=== PATIENT | male | born 1960 | race Caucasian/White ===

== ENCOUNTER → 2024-02-21 | Outpatient (CLI) | payer OTHER | END | disposition home or self-care (01) | LOC: CT 02-20 08:00 | PROVIDERS: ATTEND Internal Medicine Hematology & Oncology | DX: N20.2 Calculus of kidney with calculus of ureter (principal); K80.20 Calculus of gallbladder without cholecystitis without obstruction; K57.30 Diverticulosis of large intestine without perforation or abscess without bleeding; I25.10 Atherosclerotic heart disease of native coronary artery without angina pectoris; N13.39 Other hydronephrosis; R11.2 Nausea with vomiting, unspecified; Z51.11 Encounter for antineoplastic chemotherapy; R19.7 Diarrhea, unspecified; N18.30 Chronic kidney disease, stage 3 unspecified; C67.1 Malignant neoplasm of dome of bladder; K76.0 Fatty (change of) liver, not elsewhere classified; C67.9 Malignant neoplasm of bladder, unspecified ==